=== PATIENT | male | born 1965 | race Hispanic/Latino ===

== ENCOUNTER 2021-05-05 16:55 | Inpatient (IN) | payer OTHER ==
[2021-05-05 18:52] LABS: ALT (SGPT) 39 U/L (8-55); AST (SGOT) 30 U/L (5-34); Albumin 3.2 g/dL (3.5-5.0); Alkaline Phosphatase 73 U/L (40-110); Anion Gap 17 mmol/L (10-20); BUN (Urea Nitrogen) 19 mg/dL (8.4-25.7); Bilirubin, Total 1.7 mg/dL (0.2-1.2); Calc. Creatinine Clearance 0 mL/min (70-130); Calcium 9.8 mg/dL (7.8-10.44); Carbon Dioxide 22 mmol/L (22-29); Chloride 97 mmol/L (98-107); Globulin 5.4 g/dL (2.4-3.5); Glucose 281 mg/dL (70-105); Potassium 4.9 mmol/L (3.5-5.1); Protein, Total 8.6 g/dL (6.0-8.3); Sodium 131 mmol/L (136-145)
[2021-05-05 18:53] LABS: #Monocytes 0.7 10x3/uL (0.0-1.1); #Neutrophils 11.2 10x3/uL (1.5-8.4); %Basophils 0.2 % (0.0-2.0); %Eosinophils 0.3 % (0.0-6.0); %Lymphocytes 4.6 % (18.0-47.0); %Monocytes 5.6 % (0.0-10.0); %Neutrophils 87.6 % (40.0-75.0); Hemoglobin 14.6 g/dL (13.5-17.5); Mean Corpuscular HGB CONC 36.2 g/dL (32.0-36.0); Mean Corpuscular Hemoglobin 33.6 pg (27.0-33.0); Mean Corpuscular Volume 92.9 fl (81.2-95.1); Mean Platelet Volume 9.2 fl (7.4-10.4); Platelet Count 372 10x3/uL (150-450); RBC Distribution Width 11.8 % (11.5-14.5); Red Blood Cell (RBC) Count 4.34 10x6/uL (4.32-5.72); White Blood Cell (WBC) Count 12.7 10x3/uL (3.5-10.5)
[2021-05-05] MEDS ORDERED: Dexamethasone 10 MG/ML VIAL ONE (19:37)
[2021-05-05] MEDS ORDERED: Dextrose 50% Abboject 50 ML SYRINGE SLOW IVP PRN (23:50)
[2021-05-05] MEDS ORDERED: HumaLOG 300 UNITS/3 ML VIAL SC PRN (23:50)
[2021-05-05] MEDS ORDERED: Dextrose 5% in Water 1,000 ML IV PRN (23:50)
[2021-05-05] MEDS ORDERED: Calcium Carbonate 500 MG ChewTAB PO PRN (23:50)
[2021-05-05] MEDS ORDERED: Zolpidem Tartrate 5 MG TAB PO PRN (23:50)
[2021-05-05] MEDS ORDERED: Ondansetron PF 4 MG/2 ML Vial IVP PRN (23:50)
[2021-05-05] MEDS ORDERED: Acetaminophen 325 MG TAB PO PRN (23:50)
[2021-05-05] MEDS ORDERED: HYDROcodone/Acetaminophen 5/325 mg Tablet PO PRN (23:50)
[2021-05-05] MEDS ORDERED: Ventolin HFA Inhaler 60 PUFF INHALER INH PRN (23:54)
[2021-05-06] MEDS ORDERED: Dextromethorphan Polistirex 30 MG/5 ML (89 ML BOTTLE) PO PRN (00:01)
[2021-05-06] MEDS ORDERED: [UNRECOGNIZED DRUG - REMARK] FS SCH (00:15)
[2021-05-06 05:28] LABS: #Monocytes 0.3 10x3/uL (0.0-1.1); #Neutrophils 7.8 10x3/uL (1.5-8.4); %Basophils 0.3 % (0.0-2.0); %Lymphocytes 9.7 % (18.0-47.0); %Monocytes 2.9 % (0.0-10.0); %Neutrophils 84.9 % (40.0-75.0); Hemoglobin 13.8 g/dL (13.5-17.5); Mean Corpuscular Hemoglobin 32.9 pg (27.0-33.0); Mean Platelet Volume 9.3 fl (7.4-10.4); Platelet Count 395 10x3/uL (150-450); RBC Distribution Width 11.9 % (11.5-14.5); Red Blood Cell (RBC) Count 4.19 10x6/uL (4.32-5.72); White Blood Cell (WBC) Count 9.2 10x3/uL (3.5-10.5)
[2021-05-06 05:45] LABS: ALT (SGPT) 32 U/L (8-55); AST (SGOT) 19 U/L (5-34); Albumin 3.1 g/dL (3.5-5.0); Alkaline Phosphatase 70 U/L (40-110); Anion Gap 18 mmol/L (10-20); BUN (Urea Nitrogen) 22 mg/dL (8.4-25.7); Bilirubin, Total 1.2 mg/dL (0.2-1.2); Calc. Creatinine Clearance 37 mL/min (70-130); Calcium 9.8 mg/dL (7.8-10.44); Carbon Dioxide 22 mmol/L (22-29); Chloride 100 mmol/L (98-107); Globulin 5.1 g/dL (2.4-3.5); Glucose 277 mg/dL (70-105); Potassium 4.6 mmol/L (3.5-5.1); Protein, Total 8.2 g/dL (6.0-8.3); Sodium 135 mmol/L (136-145)
[2021-05-06 06:41] LABS: Bilirubin Neg (Negative); Blood, Urine Negative (Negative); Clarity Clear (Clear); Glucose, Urine (Dipstick) 100 mg/dL (Negative); Ketone, Urine 5 mg/dL (Negative); Leukocyte Negative (Negative); Nitrite Negative (Negative); Protein, Urine (Dipstick) 30 mg/dl (Neg-Trace); Urobilinogen Normal mg/dL (Less than 2)
[2021-05-06 06:51] LABS: Bacteria/HPF None Seen HPF (None Seen); RBC/HPF None Seen HPF (0-3); Squamous Epithelial None Seen HPF (0-3); WBC/HPF None Seen HPF (0-3)
[2021-05-06 06:53] LABS: Strep pneumo Urine Ag NEGATIVE (NEGATIVE)
[2021-05-06 06:54] LABS: Legionella Urinary Ag Negative (Negative)
[2021-05-06] MEDS ORDERED: Dexamethasone 4 mg/ml Vial SLOW IVP SCH (09:00)
[2021-05-06 09:50] VITALS: BMI 17.0
[2021-05-06] MEDS: Aspirin 81 mg Enteric Coated Tablet PO SCH (09:55)
[2021-05-06] MEDS: Enoxaparin Sodium 40 MG/0.4 ML SYRINGE SC SCH ×2 (09:55→20:59)
[2021-05-06] MEDS: Ascorbic Acid 500 mg Chewable Tablet PO SCH (09:55)
[2021-05-06] MEDS: Cholecalciferol 1,000 UNITS (25 MCG) TAB PO SCH (09:55)
[2021-05-06] MEDS: Oxymetazoline HCl 0.05% ( 15 ML ) NASAL SCH ×2 (09:55→20:59)
[2021-05-06] MEDS: Benzonatate 100 MG CAP PO SCH ×3 (09:55→20:58)
[2021-05-06] MEDS: Zinc Gluconate 50 MG TAB PO SCH (09:56)
[2021-05-06] MEDS: BARICITINIB 2 MG TAB PO SCH (11:16)
[2021-05-07 05:23] LABS: #Monocytes 0.6 10x3/uL (0.0-1.1); #Neutrophils 12.2 10x3/uL (1.5-8.4); %Basophils 0.1 % (0.0-2.0); %Lymphocytes 6.9 % (18.0-47.0); %Monocytes 4.2 % (0.0-10.0); %Neutrophils 86.3 % (40.0-75.0); Hemoglobin 12.4 g/dL (13.5-17.5); Mean Corpuscular HGB CONC 36.5 g/dL (32.0-36.0); Mean Corpuscular Hemoglobin 33.7 pg (27.0-33.0); Mean Corpuscular Volume 92.4 fl (81.2-95.1); Mean Platelet Volume 9.7 fl (7.4-10.4); Platelet Count 417 10x3/uL (150-450); RBC Distribution Width 11.4 % (11.5-14.5); Red Blood Cell (RBC) Count 3.68 10x6/uL (4.32-5.72); White Blood Cell (WBC) Count 14.1 10x3/uL (3.5-10.5)
[2021-05-07 05:32] LABS: ALT (SGPT) 31 U/L (8-55); AST (SGOT) 20 U/L (5-34); Albumin 2.8 g/dL (3.5-5.0); Alkaline Phosphatase 64 U/L (40-110); Anion Gap 16 mmol/L (10-20); BUN (Urea Nitrogen) 39 mg/dL (8.4-25.7); Bilirubin, Total 0.8 mg/dL (0.2-1.2); Calc. Creatinine Clearance 38 mL/min (70-130); Calcium 9.2 mg/dL (7.8-10.44); Carbon Dioxide 19 mmol/L (22-29); Chloride 100 mmol/L (98-107); Globulin 4.5 g/dL (2.4-3.5); Glucose 345 mg/dL (70-105); Potassium 4.5 mmol/L (3.5-5.1); Protein, Total 7.3 g/dL (6.0-8.3); Sodium 130 mmol/L (136-145)
[2021-05-07] MEDS: Zinc Gluconate 50 MG TAB PO SCH (08:22)
[2021-05-07] MEDS: Benzonatate 100 MG CAP PO SCH ×3 (08:22→20:13)
[2021-05-07] MEDS: Enoxaparin Sodium 40 MG/0.4 ML SYRINGE SC SCH ×2 (08:22→20:11)
[2021-05-07] MEDS: Ascorbic Acid 500 mg Chewable Tablet PO SCH (08:22)
[2021-05-07] MEDS: Cholecalciferol 1,000 UNITS (25 MCG) TAB PO SCH (08:22)
[2021-05-07] MEDS: Aspirin 81 mg Enteric Coated Tablet PO SCH (08:22)
[2021-05-07] MEDS: Oxymetazoline HCl 0.05% ( 15 ML ) NASAL SCH ×2 (08:23→20:58)
[2021-05-07] MEDS: Lantus 1000 UNITS/10 ML VIAL SC SCH ×2 (08:38→09:49)
[2021-05-07] MEDS ORDERED: Dexamethasone 4 mg/ml Vial SLOW IVP SCH (09:00)
[2021-05-07 11:15] LABS: Hemoglobin A1c 8.7 % (4.0-6.0)
[2021-05-07] MEDS: BARICITINIB 2 MG TAB PO SCH (12:04)
[2021-05-08 06:10] LABS: ALT (SGPT) 49 U/L (8-55); AST (SGOT) 37 U/L (5-34); Albumin 2.9 g/dL (3.5-5.0); Alkaline Phosphatase 64 U/L (40-110); Anion Gap 15 mmol/L (10-20); BUN (Urea Nitrogen) 41 mg/dL (8.4-25.7); Bilirubin, Total 0.7 mg/dL (0.2-1.2); Calc. Creatinine Clearance 36 mL/min (70-130); Calcium 9.3 mg/dL (7.8-10.44); Carbon Dioxide 20 mmol/L (22-29); Chloride 102 mmol/L (98-107); Globulin 4.3 g/dL (2.4-3.5); Glucose 344 mg/dL (70-105); Potassium 4.9 mmol/L (3.5-5.1); Protein, Total 7.2 g/dL (6.0-8.3); Sodium 132 mmol/L (136-145)
[2021-05-08] MEDS ORDERED: Lantus 1000 UNITS/10 ML VIAL SC SCH ×2 (09:00→12:30)
[2021-05-08] MEDS: Aspirin 81 mg Enteric Coated Tablet PO SCH (09:36)
[2021-05-08] MEDS: Ascorbic Acid 500 mg Chewable Tablet PO SCH (09:36)
[2021-05-08] MEDS: Cholecalciferol 1,000 UNITS (25 MCG) TAB PO SCH (09:36)
[2021-05-08] MEDS: Benzonatate 100 MG CAP PO SCH ×3 (09:37→20:48)
[2021-05-08] MEDS: Dexamethasone 20 MG/5 ML VIAL SLOW IVP SCH (09:37)
[2021-05-08] MEDS: Enoxaparin Sodium 40 MG/0.4 ML SYRINGE SC SCH ×2 (09:37→20:48)
[2021-05-08] MEDS: Oxymetazoline HCl 0.05% ( 15 ML ) NASAL SCH (09:38)
[2021-05-08] MEDS: Zinc Gluconate 50 MG TAB PO SCH (09:39)
[2021-05-08] MEDS: BARICITINIB 2 MG TAB PO SCH (12:02)
[2021-05-08] MEDS: HumaLOG 300 UNITS/3 ML VIAL SC PRN ×2 (17:59→21:47)
[2021-05-09 05:58] LABS: ALT (SGPT) 105 U/L (8-55); AST (SGOT) 65 U/L (5-34); Albumin 3.4 g/dL (3.5-5.0); Alkaline Phosphatase 72 U/L (40-110); Anion Gap 18 mmol/L (10-20); BUN (Urea Nitrogen) 41 mg/dL (8.4-25.7); CRP (Inflammatory) 1.85 mg/dL (= or < 0.5); Calc. Creatinine Clearance 37 mL/min (70-130); Carbon Dioxide 20 mmol/L (22-29); Chloride 102 mmol/L (98-107); Globulin 4.9 g/dL (2.4-3.5); Glucose 156 mg/dL (70-105); Protein, Total 8.3 g/dL (6.0-8.3); Sodium 135 mmol/L (136-145)
[2021-05-09] MEDS: Aspirin 81 mg Enteric Coated Tablet PO SCH (08:08)
[2021-05-09] MEDS: Zinc Gluconate 50 MG TAB PO SCH (08:08)
[2021-05-09] MEDS: Ascorbic Acid 500 mg Chewable Tablet PO SCH (08:08)
[2021-05-09] MEDS: Enoxaparin Sodium 40 MG/0.4 ML SYRINGE SC SCH ×2 (08:09→20:30)
[2021-05-09] MEDS: Benzonatate 100 MG CAP PO SCH ×3 (08:09→20:31)
[2021-05-09] MEDS: Cholecalciferol 1,000 UNITS (25 MCG) TAB PO SCH (08:09)
[2021-05-09] MEDS: Dexamethasone 20 MG/5 ML VIAL SLOW IVP SCH (08:09)
[2021-05-09] MEDS: Lantus 1000 UNITS/10 ML VIAL SC SCH (08:13)
[2021-05-09] MEDS: HumaLOG 300 UNITS/3 ML VIAL SC PRN ×4 (08:14→20:30)
[2021-05-09] MEDS: BARICITINIB 2 MG TAB PO SCH (13:05)
[2021-05-10] MEDS: Enoxaparin Sodium 40 MG/0.4 ML SYRINGE SC SCH ×2 (09:00→21:17)
[2021-05-10] MEDS: Lantus 1000 UNITS/10 ML VIAL SC SCH (09:00)
[2021-05-10] MEDS: Dexamethasone 20 MG/5 ML VIAL SLOW IVP SCH (09:01)
[2021-05-10] MEDS: Ascorbic Acid 500 mg Chewable Tablet PO SCH (09:02)
[2021-05-10] MEDS: Benzonatate 100 MG CAP PO SCH ×3 (09:02→21:17)
[2021-05-10] MEDS: Aspirin 81 mg Enteric Coated Tablet PO SCH (09:03)
[2021-05-10] MEDS: Zinc Gluconate 50 MG TAB PO SCH (09:03)
[2021-05-10] MEDS: Cholecalciferol 1,000 UNITS (25 MCG) TAB PO SCH (09:03)
[2021-05-10] MEDS ORDERED: Lidocaine Viscous Sol 2% 15 ml UD Cup SSP PRN (10:43)
[2021-05-10] MEDS ORDERED: Mag-Al 1200 mg/1200 mg/30 ML UDCUP PO PRN (10:45)
[2021-05-10] MEDS: BARICITINIB 2 MG TAB PO SCH (12:13)
[2021-05-10] MEDS: HumaLOG 300 UNITS/3 ML VIAL SC PRN ×3 (12:28→21:41)
[2021-05-11 05:54] LABS: #Basophils 0.1 10x3/uL (0.0-0.2); #Eosinphils 0.1 10x3/uL (0.0-0.5); #Monocytes 0.8 10x3/uL (0.0-1.1); #Neutrophils 13.9 10x3/uL (1.5-8.4); %Basophils 0.3 % (0.0-2.0); %Eosinophils 0.6 % (0.0-6.0); %Lymphocytes 12.5 % (18.0-47.0); %Monocytes 4.5 % (0.0-10.0); %Neutrophils 79.5 % (40.0-75.0); Hemoglobin 15.3 g/dL (13.5-17.5); Mean Corpuscular HGB CONC 36.3 g/dL (32.0-36.0); Mean Corpuscular Hemoglobin 33.1 pg (27.0-33.0); Mean Corpuscular Volume 91.3 fl (81.2-95.1); Platelet Count 436 10x3/uL (150-450); RBC Distribution Width 11.6 % (11.5-14.5); Red Blood Cell (RBC) Count 4.62 10x6/uL (4.32-5.72); White Blood Cell (WBC) Count 17.5 10x3/uL (3.5-10.5)
[2021-05-11 06:05] LABS: ALT (SGPT) 187 U/L (8-55); AST (SGOT) 70 U/L (5-34); Albumin 3.4 g/dL (3.5-5.0); Alkaline Phosphatase 66 U/L (40-110); Anion Gap 14 mmol/L (10-20); BUN (Urea Nitrogen) 37 mg/dL (8.4-25.7); Bilirubin, Direct 0.3 mg/dL (0.1-0.3); Bilirubin, Total 0.8 mg/dL (0.2-1.2); Calcium 9.7 mg/dL (7.8-10.44); Carbon Dioxide 21 mmol/L (22-29); Chloride 104 mmol/L (98-107); Glucose 85 mg/dL (70-105); Potassium 4.2 mmol/L (3.5-5.1); Protein, Total 7.8 g/dL (6.0-8.3); Sodium 135 mmol/L (136-145)
[2021-05-11 06:45] LABS: Calc. Creatinine Clearance 41 mL/min (70-130)
[2021-05-11] MEDS: Ascorbic Acid 500 mg Chewable Tablet PO SCH (08:31)
[2021-05-11] MEDS: Benzonatate 100 MG CAP PO SCH ×3 (08:31→21:23)
[2021-05-11] MEDS: Cholecalciferol 1,000 UNITS (25 MCG) TAB PO SCH (08:31)
[2021-05-11] MEDS: Zinc Gluconate 50 MG TAB PO SCH (08:31)
[2021-05-11] MEDS: Aspirin 81 mg Enteric Coated Tablet PO SCH (08:31)
[2021-05-11] MEDS: Enoxaparin Sodium 40 MG/0.4 ML SYRINGE SC SCH ×2 (08:32→21:23)
[2021-05-11] MEDS: Dexamethasone 20 MG/5 ML VIAL SLOW IVP SCH (08:32)
[2021-05-11] MEDS: Lantus 1000 UNITS/10 ML VIAL SC SCH (08:34)
[2021-05-11] MEDS: BARICITINIB 2 MG TAB PO SCH (11:53)
[2021-05-11] MEDS: HumaLOG 300 UNITS/3 ML VIAL SC PRN ×3 (13:00→21:27)
[2021-05-12] MEDS: Zinc Gluconate 50 MG TAB PO SCH (08:14)
[2021-05-12] MEDS: Dexamethasone 20 MG/5 ML VIAL SLOW IVP SCH (08:15)
[2021-05-12] MEDS: Aspirin 81 mg Enteric Coated Tablet PO SCH (08:15)
[2021-05-12] MEDS: Ascorbic Acid 500 mg Chewable Tablet PO SCH (08:15)
[2021-05-12] MEDS: Benzonatate 100 MG CAP PO SCH ×3 (08:15→20:46)
[2021-05-12] MEDS: Cholecalciferol 1,000 UNITS (25 MCG) TAB PO SCH (08:15)
[2021-05-12] MEDS: Lantus 1000 UNITS/10 ML VIAL SC SCH (08:16)
[2021-05-12] MEDS: Enoxaparin Sodium 40 MG/0.4 ML SYRINGE SC SCH ×2 (08:16→20:46)
[2021-05-12] MEDS: BARICITINIB 2 MG TAB PO SCH (11:21)
[2021-05-12] MEDS: HumaLOG 300 UNITS/3 ML VIAL SC PRN ×3 (12:26→21:18)
[2021-05-13] MEDS: Dexamethasone 20 MG/5 ML VIAL SLOW IVP SCH (09:29)
[2021-05-13] MEDS: Enoxaparin Sodium 40 MG/0.4 ML SYRINGE SC SCH ×2 (09:29→21:21)
[2021-05-13] MEDS: Zinc Gluconate 50 MG TAB PO SCH (09:30)
[2021-05-13] MEDS: Cholecalciferol 1,000 UNITS (25 MCG) TAB PO SCH (09:30)
[2021-05-13] MEDS: Benzonatate 100 MG CAP PO SCH ×3 (09:31→21:20)
[2021-05-13] MEDS: Aspirin 81 mg Enteric Coated Tablet PO SCH (09:31)
[2021-05-13] MEDS: Ascorbic Acid 500 mg Chewable Tablet PO SCH (09:31)
[2021-05-13] MEDS: Lantus 1000 UNITS/10 ML VIAL SC SCH (09:32)
[2021-05-13] MEDS: BARICITINIB 2 MG TAB PO SCH (11:49)
[2021-05-13] MEDS: HumaLOG 300 UNITS/3 ML VIAL SC PRN ×3 (12:57→21:47)
[2021-05-13] MEDS ORDERED: Melatonin 3 MG TAB PO PRN ×2 (20:57→21:00)
[2021-05-13] MEDS ORDERED: Mirtazapine 15 MG TAB PO SCH (21:00)
[2021-05-14] MEDS: HumaLOG 300 UNITS/3 ML VIAL SC PRN ×3 (05:26→16:58)
[2021-05-14 05:47] LABS: ALT (SGPT) 171 U/L (8-55); AST (SGOT) 44 U/L (5-34); Albumin 3.4 g/dL (3.5-5.0); Alkaline Phosphatase 65 U/L (40-110); Bilirubin, Direct 0.2 mg/dL (0.1-0.3); Bilirubin, Total 0.6 mg/dL (0.2-1.2); Protein, Total 7.2 g/dL (6.0-8.3)
[2021-05-14] MEDS: Lantus 1000 UNITS/10 ML VIAL SC SCH (07:47)
[2021-05-14] MEDS: Enoxaparin Sodium 40 MG/0.4 ML SYRINGE SC SCH (07:48)
[2021-05-14] MEDS: Zinc Gluconate 50 MG TAB PO SCH (07:50)
[2021-05-14] MEDS: Cholecalciferol 1,000 UNITS (25 MCG) TAB PO SCH (07:50)
[2021-05-14] MEDS: Benzonatate 100 MG CAP PO SCH ×2 (07:50→15:52)
[2021-05-14] MEDS: Aspirin 81 mg Enteric Coated Tablet PO SCH (07:50)
[2021-05-14] MEDS: Ascorbic Acid 500 mg Chewable Tablet PO SCH (07:50)
[2021-05-14] MEDS ORDERED: Dexamethasone 20 MG/5 ML VIAL SLOW IVP SCH (09:00)
[2021-05-14] MEDS: BARICITINIB 2 MG TAB PO SCH (11:40)
[2021-05-14 17:22] VITALS: BP 138/86; TEMP 97.1
== END 2021-05-14 17:15 | disposition home or self-care (01) | DRG 871 ==
LOC: CSHERS 16:55 → CSHTELE 22:57
PROVIDERS: ADMIT Student in an Organized Health Care Education/Training Program; ATTEND Family Medicine
PROC: 8E0ZXY6 Isolation (ICD-10-PCS; principal; 2021-05-05)
DX: A41.89 Other specified sepsis (principal); U07.1 COVID-19; J12.82 Pneumonia due to coronavirus disease 2019; J96.01 Acute respiratory failure with hypoxia; R65.10 Systemic inflammatory response syndrome (SIRS) of non-infectious origin without acute organ dysfunction; R73.9 Hyperglycemia, unspecified; N18.30 Chronic kidney disease, stage 3 unspecified; Z87.891 Personal history of nicotine dependence; Z88.0 Allergy status to penicillin
CPT/HCPCS: 36415; 36416; 71045; 71275; 80048; 80053; 80076; 81001; 83036; 84145; 84484; 85025; 85379; 86140; 87449; 87899; 93005; 94640; 94760; 94799; 96374; J1100; J1650; J1815; J1956